=== PATIENT | male | born 1940 | race Caucasian/White ===

== ENCOUNTER 2017-04-13 10:23 | Emergency (ER) | payer OTHER ==
[2017-04-13 10:33] VITALS: TEMP 98.1
--- NOTE | 2017-04-13 11:39 | CPEKG ---
Heart Rate: 81 RR Interval: 741 P-R Interval: 172 QRSD Interval: 86 QT Interval: 372 QTC Interval: 432 P Aydlett: 52 QRS Aydlett: 29 T Wave Aydlett: 26 EKG Severity - NORMAL ECG - EKG Impression: SINUS RHYTHM Electronically Signed By: Ayah Webster 13-Apr-2017 15:14:11
[2017-04-13] MEDS ORDERED: ASPIRIN 81 MG CHEWABLE TAB PO ONE (11:52)
--- NOTE | 2017-04-13 11:56 | EDPHY ---
H & P Time Seen by Provider: 04/13/17 11:39 HPI/ROS: CHIEF COMPLAINT: chest "tingle" HISTORY OF PRESENT ILLNESS: Patient is a 77-year-old male with a history of hypertension who presents to the emergency department reporting a "tingle" sensation in his arm and chest. He initially got a sensation on his arm. He now gets it on his chest. It is fleeting in nature and lasts less than a second at a time. It comes and goes. It is not associated with exercise and movement. Patient states this is not pain but rather an odd vibration. He denies any other symptoms such as shortness of breath, nausea, vomiting or diaphoresis. The patient does travel, but he has had no leg pain or swelling. No recent illness. No arm weakness or numbness. REVIEW OF SYSTEMS: My complete review of systems is negative except as mentioned in the HPI. Past Medical/Surgical History: Includes hypertension Social history: The patient does not smoke new history family history: The patient's father at 88. He did have a history of coronary artery disease. Smoking Status: Never smoked Physical Exam: Vitals noted GENERAL: Well-appearing, in no acute distress, alert. HEENT: Eyes normal to inspection, normal pharynx, no signs of dehydration. NECK: No thyromegaly, no lymphadenopathy, supple. RESPIRATORY: Clear to auscultation bilaterally, no rales, rhonchi or wheezing. CVS: Regular rate and rhythm, no rubs, murmurs, or gallops. ABDOMEN: Soft, nontender, nondistended, no organomegaly. BACK: Normal to inspection, no CVA tenderness. SKIN: Normal color, no rash, warm, dry. No pallor. EXTREMITIES: No pedal edema, no calf tenderness, no Homans sign or cords, no joint swelling. NEURO/PSYCH: Alert and oriented x3, normal mood and affect, normal motor sensory exam. Left arm normal. No obvious cranial nerve deficit. Constitutional: Initial Vital Signs Temperature (C) 36.7 C 04/13/17 10:31 Heart Rate 81 04/13/17 10:31 Respiratory Rate 16 04/13/17 10:31 Blood Pressure 147/95 H 04/13/17 10:31 O2 Sat (%) 96 04/13/17 10:31 O2 Delivery Mode Room Air Allergies/Adverse Reactions: No Known Allergies Allergy (Unverified 04/13/17 10:30) Home Medications: Medication Instructions Recorded Lisinopril 04/13/17 Medical Decision Making - Diagnostics Imaging Results: Imaging Impressions Chest X-Ray 04/13/17 11:53 Impression: Clear lungs. No acute process. ED Course/Re-evaluation: In the emergency department I discussed possible etiologies with the patient. I answered all his questions. He was given aspirin 324 mg orally. Laboratory studies, EKG and chest x-ray were ordered. EKG shows normal sinus rhythm, normal rate, normal axis, normal intervals. There are no ST or T-wave abnormalities. EKG is normal as interpreted by me. chest x-ray: Please refer the dictated report. No acute disease noted. The patient's laboratory studies were unremarkable. Troponin and D-dimer were negative. Differential Diagnosis: My differential includes but is not limited to ACS, acute NE, myocarditis, pericarditis, pneumonia, pneumothorax, hiatal hernia, dissection, aneurysm bronchitis, pneumonia, CVA, plexus injury, disc herniation - Data Points Laboratory Results: Laboratory Results 04/13/17 11:30 04/13/17 11:30 04/13/17 04/13/17 04/13/17 11:30 11:30 11:30 WBC 7.55 10^3/uL 10^3/uL (3.80-9.50) RBC 4.82 10^6/uL 10^6/uL (4.40-6.38) Hgb 15.9 g/dL g/dL (13.7-17.5) Hct 44.3 % % (40.0-51.0) MCV 91.9 fL fL (81.5-99.8) MCH 33.0 pg pg (27.9-34.1) MCHC 35.9 g/dL g/dL (32.4-36.7) RDW 12.3 % % (11.5-15.2) Plt Count 339 10^3/uL 10^3/uL (150-400) MPV 9.4 fL fL (8.7-11.7) Neut % (Auto) 67.0 % % (39.3-74.2) Lymph % (Auto) 22.8 % % (15.0-45.0) [place] % (Auto) 8.7 % % (4.5-13.0) Eos % (Auto) 0.8 % % (0.6-7.6) Baso % (Auto) 0.4 % % (0.3-1.7) Nucleat RBC Rel Count 0.0 % % (0.0-0.2) Absolute Neuts (auto) 5.06 10^3/uL 10^3/uL (1.70-6.50) Absolute Lymphs (auto) 1.72 10^3/uL 10^3/uL (1.00-3.00) Absolute Monos (auto) 0.66 10^3/uL 10^3/uL (0.30-0.80) Absolute Eos (auto) 0.06 10^3/uL 10^3/uL (0.03-0.40) Absolute Basos (auto) 0.03 10^3/uL 10^3/uL (0.02-0.10) Absolute Nucleated RBC 0.00 10^3/uL 10^3/uL (0-0.01) Immature Gran % 0.3 % % (0.0-1.1) Immature Gran # 0.02 10^3/uL 10^3/uL (0.00-0.10) D-Dimer 0.34 ug/mLFEU ug/mLFEU (0.00-0.50) Sodium 140 mEq/L mEq/L (134-144) Potassium 4.1 mEq/L mEq/L (3.5-5.2) Chloride 100 mEq/L mEq/L (97-110) Carbon Dioxide 24 mEq/l mEq/l (22-31) Anion Gap 16 mEq/L mEq/L (8-16) BUN 18 mg/dL mg/dL (7-23) Creatinine 0.9 mg/dL mg/dL (0.7-1.3) Estimated GFR > 60 Glucose 98 mg/dL mg/dL (70-100) Calcium 10.0 mg/dL mg/dL (8.5-10.4) Troponin I < 0.012 ng/mL ng/mL (0.000-0.034) Medications Given: Discontinued Medications Aspirin (Aspirin) 324 mg PO EDNOW ONE Stop: 04/13/17 11:53 Last Admin: 04/13/17 11:58 Dose: 324 mg Departure - Departure Disposition: Home, Routine, Self-Care Clinical Impression: Chest pain Qualifiers: Chest pain type: unspecified Qualified Code(s): R07.9 - Chest pain, unspecified Condition: Good Instructions: Chest Pain (ED) Additional Instructions: Return with increasing chest pain, shortness of breath or any other concerns. You need close follow-up with your primary care physician. Call to make an appointment. Referrals: Gerardo Ruth [Primary Care Provider] - 2-3 days without fail
[2017-04-13 12:02] LABS: % IMMATURE GRANULYOCYTES 0.3 % (0.0-1.1); ABSOLUTE IMMATURE GRANULOCYTES 0.02 10^3/uL (0.00-0.10); ADD DIFF? NO; ADD MORPH? NO; ADD SCAN? NO; ATYPICAL LYMPHOCYTE FLAG 0 (0-99); FRAGMENT RBC FLAG 0 (0-99); HEMATOCRIT 44.3 % (40.0-51.0); HEMOGLOBIN 15.9 g/dL (13.7-17.5); LEFT SHIFT FLG 0 (0-99); LIPEMIA HEMOLYSIS FLAG 90 (0-99); MEAN CELL HEMOGLOBIN CONCENTR. 35.9 g/dL (32.4-36.7); MEAN CELL VOLUME 91.9 fL (81.5-99.8); MEAN PLATELET VOLUME 9.4 fL (8.7-11.7); PLATELET CLUMPS FLAG 0 (0-99); PLATELET COUNT 339 10^3/uL (150-400); RED BLOOD CELL COUNT 4.82 10^6/uL (4.40-6.38); RED CELL DISTRIBUTION WIDTH 12.3 % (11.5-15.2)
[2017-04-13 12:08] LABS: ANION GAP 16 mEq/L (8-16); CARBON DIOXIDE 24 mEq/l (22-31); CHLORIDE 100 mEq/L (97-110); CREATININE 0.9 mg/dL (0.7-1.3); GLOMERULAR FILTRATION RATE > 60; GLUCOSE 98 mg/dL (70-100); POTASSIUM 4.1 mEq/L (3.5-5.2); SODIUM 140 mEq/L (134-144)
[2017-04-13 12:21] LABS: TROPONIN I < 0.012 ng/mL (0.000-0.034)
[2017-04-13 12:55] VITALS: RESP 15
[2017-04-13 14:40] VITALS: BP 154/89; PULSE 65; O2SAT 95
== END 2017-04-13 14:40 | disposition home or self-care (01) ==
DX: R07.9 Chest pain, unspecified (principal); I10 Essential (primary) hypertension

== ENCOUNTER → 2018-10-04 | Outpatient (CLI) | payer OTHER ==
[~2018-10-04] MED LIST: IOPAMIDOL (ISOVUE-300) 100 ML BTL ONE
== END ==
LOC: FIMAGING 09:41
PROVIDERS: ATTEND Urology
DX: C61 Malignant neoplasm of prostate (principal)
CPT/HCPCS: 74177; 78306; A9503; Q9967; 82565-PO